=== PATIENT | female | born 1940 | race Caucasian/White ===

== ENCOUNTER 2017-03-21 05:30 | Observation (INO) | payer OTHER ==
[2017-03-21] MEDS ORDERED: ceFAZolin 2 GM/DEXTROSE 100 ML IV ONE (05:47)
[2017-03-21] MEDS ORDERED: LIDOCAINE 1% 2 ML INJ ID PRN (05:48)
[2017-03-21] MEDS ORDERED: LR 1,000 ML IV ONE (05:48)
[2017-03-21] MEDS ORDERED: MIDAZOLAM 2 MG/2 ML VIAL IVP ONE (07:05)
--- NOTE | 2017-03-21 07:05 | PDANEPAE ---
ANE History of Present Illness vaginal mesh erosion, robotic repair ANE Past Medical History - Cardiovascular History Hx Hypertension: No Hx Arrhythmias: No Hx Chest Pain: No Hx Coronary Artery / Peripheral Vascular Disease: No Hx CHF / Valvular Disease: Yes Hx Palpitations: No Cardiovascular History Comment: VENTRICULAR SEPTAL DEFECT. MONITORED REGULARLY - Pulmonary History Hx COPD: No Hx Asthma/Reactive Airway Disease: No Hx Recent Upper Respiratory Infection: No Hx Oxygen in Use at Home: No Hx Sleep Apnea: No Sleep Apnea Screening Result - Last Documented: Negative - Neurologic History Hx Cerebrovascular Accident: No Hx Seizures: No Hx Dementia: No - Endocrine History Hx Diabetes: No - Renal History Hx Renal Disorders: Yes Renal History Comment: BLADDER SLING - Liver History Hx Hepatic Disorders: No - Neurological & Psychiatric Hx Hx Neurological and Psychiatric Disorders: No - Cancer History Hx Cancer: No - Congenital Disorder History Hx Congenital Disorders: No Congenital History Comment: SQUAMOUS CELL - GI History Hx Gastrointestinal Disorders: No - Other Health History Other Health History: LOW PLATELETS IN PAST - Chronic Pain History Chronic Pain: Yes (R KNEE) - Surgical History Prior Surgeries: HYSTERECTOMY W/URETHRAL SLING. L TKA. BREAST TX R ANE Review of Systems Review of Systems: - Exercise capacity Exercise capacity: >=4 METS METS (RN): 5 METS - Systems Constitutional: Reports: no symptoms EENMT: Reports: no symptoms Cardiac: Reports: no symptoms ANE Patient History - Allergies Allergies/Adverse Reactions: Penicillins Allergy (Intermediate, Verified 12/11/11 16:13) BAD RASH - Home Medications Home Medications: Cholecalciferol Vit D3 [Vitamin D 2000 units (OTC)] 2,000 units PO BID 12/04/11 [Last Taken 03/16/17] Herbals/Supplements -Info Only 1 ea PO DAILY 12/04/11 [Last Taken 03/16/17] diphenhydrAMINE [Benadryl 25 MG (OTC)] 25 - 50 mg PO HS PRN 12/12/11 [Last Taken 03/18/17 21:00] Ascorbic Acid [Vitamin C 500 mg (*)] 1,000 mg PO BID 03/11/17 [Last Taken ] Aspirin [Aspirin 325 mg (*)] 325 mg PO DAILY PRN 03/11/17 [Last Taken Unknown] C/E/Zn/Cu/OM3/DHA/EPA/LUT/ZEAX [Preservision Areds 2 Softgel] 1 each PO BID [Last Taken 03/16/17] Ibuprofen [Motrin (*)] 200 mg PO DAILY PRN 03/11/17 [Last Taken 02/20/17] - NPO status NPO Status: no food or drink >8 hours NPO Since - Liquids (Date): 03/20/17 NPO Since - Liquids (Time): 22:30 NPO Since - Solids (Date): 03/20/17 NPO Since - Solids (Time): 11:00 - Anes Hx Anes Hx: no prior problems - Smoking Hx Smoking Status: Former smoker - Alcohol Use Alcohol Use: Occasionally (1/day) - Family Anes Hx Family Hx Anesthesia Complications: NEG ANE Labs/Vital Signs - Vital Signs Blood Pressure: 163/69 Heart Rate: 60 Respiratory Rate: 16 O2 Sat (%): 92 Height: 160.02 cm Weight: 57.153 kg ANE Physical Exam - Airway Mallampati Score: Class 2 Mouth exam: normal dental/mouth exam - Pulmonary Pulmonary: no respiratory distress - Cardiovascular Cardiovascular: regular rate and rhythym - ASA Status ASA Status: II ANE Anesthesia Plan Anesthesia Plan: general endotracheal anesthesia
[2017-03-21] MEDS ORDERED: ONDANSETRON 4 MG/2 ML VIAL ONE (07:10)
[2017-03-21] MEDS ORDERED: ROCURONIUM 100 MG/10 ML VIAL ONE (07:10)
[2017-03-21] MEDS ORDERED: DEXAMETHASONE 4 MG/ML VIAL ONE (07:10)
[2017-03-21] MEDS ORDERED: fentaNYL 100 MCG/2 ML INJ ONE ×5 (07:10→11:00)
[2017-03-21] MEDS ORDERED: LIDOCAINE 2% 5 ML SDV ONE (07:10)
[2017-03-21] MEDS ORDERED: PROPOFOL 200 MG/20 ML VIAL ONE ×2 (07:11→08:43)
[2017-03-21] MEDS ORDERED: BUPIVACAINE 0.25% 30 ML SDV ONE (07:32)
--- NOTE | 2017-03-21 07:33 | PDHPUP ---
History & Physical Update H&P update statement: This history and physical update is based on an assessment of the patient which was completed after admission or registration (within 24 hours), but prior to the surgery/procedure. H&P update: no change in patient's condition since H&P completed
[2017-03-21] MEDS ORDERED: BUPIVACAINE/EPI 0.5% 30 ML SDV ONE (08:08)
[2017-03-21] MEDS ORDERED: CLINDAMYCIN 2% VAGINAL CREAM VG ONE (09:23)
[2017-03-21] MEDS ORDERED: KETOROLAC 30 MG/1 ML SDV ONE (09:45)
[2017-03-21] MEDS ORDERED: NALOXONE HCL 0.4 MG/ML INJ IVP PRN (09:53)
[2017-03-21] MEDS ORDERED: HYDROCODONE/APAP 5/325 TAB PO PRN (09:53)
[2017-03-21] MEDS ORDERED: PROMETHAZINE HCL 25 MG/ML INJ IVP PRN ×2 (09:53→10:38)
[2017-03-21] MEDS ORDERED: ONDANSETRON 4 MG/2 ML VIAL IVP PRN (09:53)
[2017-03-21] MEDS ORDERED: HYDROmorphONE/DILAUDID 1 MG/ML SYR IVP PRN (09:53)
[2017-03-21] MEDS ORDERED: ALBUTEROL 3 ML DEYVIAL IH PRN (09:53)
[2017-03-21] MEDS ORDERED: fentaNYL 100 MCG/2 ML INJ IVP PRN (09:53)
[2017-03-21] MEDS ORDERED: OXYCODONE/APAP 5/325 TAB PO PRN (09:53)
[2017-03-21] MEDS ORDERED: SUGAMMADEX SODIUM 200 MG/2 ML VIAL IVP ONE (09:56)
--- NOTE | 2017-03-21 10:34 | POSTOPPROG ---
Post Op Note Date of Operation: 03/21/17 Surgeon: Eyal House (# [id number]) Anesthesia: GET(General Endotracheal) Pre-op Diagnosis: Sacrocolpopexy vaginal mesh erosion Post-op Diagnosis: Sacrocolpopexy vaginal mesh erosion Procedure: Robotically-assisted revision of sacrocolpopexy mesh w/ vaginal closure Findings: See op note Inf/Abcess present in the surg proc area at time of surgery?: No EBL: Minimal (25 cc) Complications: None Specimen(s): None
[2017-03-21] MEDS ORDERED: HYDROCODONE/APAP 10/325 TAB PO PRN (10:38)
[2017-03-21] MEDS ORDERED: D5W 1/2 NS 1,000 ML IV SCH (10:45)
--- NOTE | 2017-03-21 11:55 | GOP ---
[f rep st] OPERATIVE REPORT DATE OF OPERATION: 03/21/2017 SURGEON: Eyal House MD SALES CORRESPONDENT: Rosa Bingham CFA. ANESTHESIA: General endotracheal. PREOPERATIVE DIAGNOSIS: Sacrocolpopexy mesh vaginal erosion. POSTOPERATIVE DIAGNOSIS: Sacrocolpopexy mesh vaginal erosion. PROCEDURE PERFORMED: Robotically-assisted laparoscopic revision of sacrocolpopexy mesh with vaginal closure. FINDINGS: Portion of previously-placed sacrocolpopexy mesh had eroded through the vaginal wall along the anterior aspect very close to the vaginal cuff. SPECIMENS: None. ESTIMATED BLOOD LOSS: Approximately 25 cc. INDICATIONS: This woman underwent combined robotically-assisted laparoscopic total abdominal hysterectomy with sacral colpopexy approximately 5 years ago. Within 6 months of that procedure, the patient was noted to have some suggestion of erosion near the vaginal cuff of what appeared to be [place]-Beau suture at that time. I initially attempted to perform a repair transvaginally in late 2011, but this was only partially successful. Since that time, the patient has been monitored regularly and more recently has been having more erosion of both Water[place]-Beau suture and a portion of the mesh through the vaginal defect. Even though the patient was asymptomatic, because of concerns the patient could ultimately develop a significant infection, it was recommended that she undergo more extensive intraoperative management at this time. The indications for the procedures, as well as potential risks and complications, were discussed with the patient preoperatively. She appeared to understand, her questions were answered, and she wished to proceed. Written informed surgical consent was thereafter obtained. DESCRIPTION OF PROCEDURE: The patient was brought to the operating room and administered general endotracheal anesthesia. An orogastric tube was placed by Anesthesia and removed at the conclusion of the case. The patient was placed in the supine position in low lithotomy with Nabil stirrups. A complete vaginal and abdominal prep was performed. The patient was draped in standard fashion utilizing Ioban over the abdomen. A 16-Armenian Lyons catheter was placed to gravity drainage sterilely on the field. Because of the patient's prior robotic surgery, which included a transverse supraumbilical incision, I decided to make a longitudinal midline incision that started approximately 1 cm above the umbilicus and extended cephalad from there. I decided to cut down onto the fascia and insert a 12 mm laparoscopic port under direct vision at this location. I then cinched up the fascia around the port with interrupted 0 Vicryl sutures. The intra-abdominal cavity was then carefully inspected and no significant adhesions were noted as result of the prior operation. I then marked out my other port sites which were as follows: An 8 mm robotic port placed in the left lower quadrant approximately 2 cm below the umbilicus and 7 cm lateral to the midline, another 8 mm robotic port placed in the left lower quadrant approximately 8 cm lateral to the more medial left lower quadrant robotic port and nearly in the same transverse line as the umbilicus, an 8 mm robotic port placed in the right lower quadrant approximately 2 cm below the umbilicus and 11-12 cm lateral to the midline, and a 12 mm laparoscopic rehabilitation assistant port placed in the right upper quadrant along the lateral edge of the rectus muscle, approximately 2 cm below the costal margin. All of these ports were placed under direct vision without complication. The patient was then placed in approximately 25 degree Trendelenburg position, and the robot was brought in and docked between the patient's legs. All of the robotic arms were connected to the appropriate ports. I then left the patient' s bedside and entered the surgeon's robotic console. The procedure was performed with 15 mmHg intra-abdominal pressure maintained throughout the case. The 0 degree 12 mm robotic camera was also utilized. I was able to identify the posterior perineum overlying the previously-placed sacrocolpopexy mesh. The outline of the Lyons catheter balloon within the bladder was visualized, and a vaginal probe was used for manipulation and visualization of the vagina. I then opened the posterior peritoneum over the region of where I expected the vaginal apex to be. I then carefully dissected beneath the peritoneum. I was then able to visualize some of the previously placed mesh. As I continued my dissection along the region of the vaginal apex, I was ultimately able to identify the area of erosion through the vagina. The mesh and Waterbury-Beau suture that had eroded into the vagina was then pulled out and cut free with scissors. I then further cut away some of the mesh circumferentially around the vaginal defect in order to get apron cleaner edges to allow for sufficient closure. This was done with cold scissors dissection as much as possible in order to maintain as much vascularity to the vaginal wall as possible. The erosion did appear to occur near the vaginal cuff along the anterior aspect. I cut away an approximately 1 cm circumference of the mesh where the erosion had occurred. I was ultimately able to obtain fresh edges along the vaginal wall circumferentially where the erosion had occurred. I then closed the anterior vaginal wall defect with a full-thickness layer of running 0 Vicryl suture. A 2nd more superficial layer which approximated the serosa was then performed with a running 2-0 Vicryl suture. The intraabdominal pressure was temporarily decreased to 5 mmHg to confirm that adequate hemostasis was present, and this was indeed the case. I then closed the peritoneum over the defect with running 3-0 Vicryl suture. No mesh was exposed to the intra-abdominal cavity at this point. Hemostasis was present. The bladder was intact (as evidenced by filling the bladder with approximately 200 cc of sterile fluid through the Lyons catheter). The right iliac vessels and ureter were visualized throughout the case and were unharmed from the operative process. This completed the robotic portion of the procedure. The robot was then undocked and I returned to the patient's bedside. A fascial closure device with an 0 Vicryl suture was then used to reapproximate the fascia at the 2 separate 12 mm laparoscopic port sites. The wounds were then thoroughly irrigated with normal saline. It should also be mentioned that the operative area intra-abdominally was thoroughly irrigated throughout the case with normal saline. All the skin incisions were then anesthetized with a total of 30 cc of 0.5% Marcaine with epinephrine. The skin edges were then reapproximated with a running 4-0 Monocryl subcuticular suture, followed by the application of Dermabond. The patient was also given Toradol 15 mg IV by Anesthesia for postoperative analgesic purposes. The patient was then awakened , extubated, transferred to her bed, then taken to the recovery room. She tolerated the procedure well overall. COMPLICATIONS: None. DISPOSITION: She was transferred to the recovery room in stable condition. She will be admitted overnight for postoperative care. /[id number]/MODL MTDD
[2017-03-21] MEDS: ONDANSETRON 4 MG/2 ML VIAL IVP PRN ×2 (12:08→17:47)
[2017-03-21] MEDS: HYDROmorphONE/DILAUDID 1 MG/ML SYR IVP PRN ×2 (15:21→21:46)
[2017-03-21] MEDS: KETOROLAC 15 MG/1 ML SDV IVP SCH ×2 (16:32→21:46)
[2017-03-22] MEDS: KETOROLAC 15 MG/1 ML SDV IVP SCH ×3 (00:10→11:00)
[2017-03-22] MEDS: HYDROmorphONE/DILAUDID 1 MG/ML SYR IVP PRN ×2 (04:44→11:00)
[2017-03-22 05:06] LABS: HEMATOCRIT 33.6 % (38.0-47.0); HEMOGLOBIN 11.2 g/dL (12.6-16.3); MEAN CELL HEMOGLOBIN 30.4 pg (27.9-34.1); MEAN CELL HEMOGLOBIN CONCENTR. 33.3 g/dL (32.4-36.7); MEAN CELL VOLUME 91.1 fL (81.5-99.8); RED BLOOD CELL COUNT 3.69 10^6/uL (4.18-5.33); RED CELL DISTRIBUTION WIDTH 13.6 % (11.5-15.2)
[2017-03-22 08:39] VITALS: RESP 18
[2017-03-22] MEDS ORDERED: traMADol 50 MG TAB PO PRN (13:26)
--- NOTE | 2017-03-22 13:26 | SOAPPROG ---
SOAP Progress Note Assessment/Plan: Assessment: POD 1 s/p robotic repair of vaginal erosion of sacrocolpopexy mesh - doing well. Plan: Ready for discharge today. Subjective: No complaints. Wants to go home today. Voiding and having flatus. Ambulating. Would like tramadol, as well as narcotics, for pain. Objective: Vital Signs Temp Pulse Resp BP Pulse Ox 36.3 C 61 18 112/57 L 93 03/22/17 13:04 03/22/17 13:04 03/22/17 13:04 03/22/17 13:04 03/22/17 13:04 Laboratory Results 03/22/17 04:33 03/21/17 03/22/17 03/23/17 05:59 05:59 05:59 Intake Total 3120 Output Total 1430 700 Balance 1690 -700 Physical Exam - Physical Exam General Appearance: WD/WN, alert, no apparent distress Abdomen: non-tender, soft, other (incisions c/d/i) Skin: normal color, warm/dry Extremities: non-tender, normal inspection Neuro/Psych: alert, normal mood/affect, oriented x 3 ICD10 Worksheet Patient Problems: Problems Problem Status Onset Erosion of vaginal mesh Acute - ICD10 Problem Qualifiers (1) Erosion of vaginal mesh
[2017-03-22 17:24] VITALS: BP 129/51; PULSE 64; TEMP 97.7; O2SAT 94
== END 2017-03-22 17:44 | disposition home or self-care (01) ==
LOC: F1N 05:30
PROVIDERS: ADMIT Specialist; ATTEND Specialist
PROC: 0UQG4ZZ Repair Vagina, Percutaneous Endoscopic Approach (ICD-10-PCS; principal; 2017-03-21 07:15)
PROC: 0UP Female Reproductive System, Removal (ICD-10-PCS; principal; 2017-03-21 07:15)
PROC: 8E0W8CZ Robotic Assisted Procedure of Trunk Region, Via Natural or Artificial Opening Endoscopic (ICD-10-PCS; principal; 2017-03-21 07:15)
DX: T83.711D Erosion of implanted vaginal mesh to surrounding organ or tissue, subsequent encounter (principal); S31.40XA Unspecified open wound of vagina and vulva, initial encounter; N39.3 Stress incontinence (female) (male); Y82.8 Other medical devices associated with adverse incidents; Z87.891 Personal history of nicotine dependence; Z80.3 Family history of malignant neoplasm of breast; Z90.710 Acquired absence of both cervix and uterus; Z88.0 Allergy status to penicillin
CPT/HCPCS: 57423; 57426; J0690; J1100; J1170; J1885; J2250; J2405; J2550; J2704; J3010

== ENCOUNTER → 2017-06-19 | Outpatient (CLI) | payer OTHER | LOC: FIMAGING 09:16 | PROVIDERS: ATTEND Internal Medicine | DX: Z12.31 Encounter for screening mammogram for malignant neoplasm of breast (principal) | CPT/HCPCS: G0202 ==

== ENCOUNTER → 2017-09-02 | Outpatient (CLI) | payer OTHER | LOC: BHCLAF 13:15 | PROVIDERS: ATTEND Internal Medicine Cardiovascular Disease | DX: Z01.810 Encounter for preprocedural cardiovascular examination (principal); I35.9 Nonrheumatic aortic valve disorder, unspecified | CPT/HCPCS: 93306-PO ==

== ENCOUNTER → 2018-06-20 | Outpatient (CLI) | payer OTHER | LOC: FIMAGING 08:54 | PROVIDERS: ATTEND Internal Medicine | DX: Z12.31 Encounter for screening mammogram for malignant neoplasm of breast (principal); Z80.3 Family history of malignant neoplasm of breast ==

== ENCOUNTER → 2018-09-05 | Outpatient (CLI) | payer OTHER | LOC: BHCLAF 09:15 | PROVIDERS: ATTEND Internal Medicine Cardiovascular Disease | DX: I35.1 Nonrheumatic aortic (valve) insufficiency (principal); I34.0 Nonrheumatic mitral (valve) insufficiency | CPT/HCPCS: 93306-PO ==